=== PATIENT | male | born 1960 | race Caucasian/White ===

== ENCOUNTER 2019-09-30 21:35 | Emergency (ER) | payer BC ==
[~2019-09-30] VITALS: Ht 182.9 cm; Wt 123.4 kg
[2019-09-30 21:41] VITALS: Ht 182.9 cm; Wt 123.4 kg
[2019-09-30 22:47] VITALS: BP 128/89
== END 2019-09-30 22:47 | disposition left against medical advice (07) ==
LOC: ED 21:35
DX: Z53.21 Procedure and treatment not carried out due to patient leaving prior to being seen by health care provider (principal)
CPT/HCPCS: 82962